=== PATIENT | male | born 1970 | race Caucasian/White ===

== ENCOUNTER 2023-07-14 09:51 | Emergency (ER) | payer OTHER ==
[~2023-07-14] VITALS: Ht 162.6 cm; Wt 98.9 kg
[2023-07-14 10:33] VITALS: BP 119/71; PULSE 97; RESP 20; TEMP 99; O2SAT 95
[2023-07-14 11:35] LABS: FLU A ANTIGEN negative (NEGATIVE); FLU B ANTIGEN NEGATIVE (NEGATIVE)
[2023-07-14] MEDS ORDERED: BENZ150C2 PO (12:41)
[2023-07-14] MEDS ORDERED: BENZ-300 PO (12:41)
[2023-07-14 13:00] VITALS: BP 120/69; PULSE 99; RESP 18; TEMP 98; O2SAT 97
== END 2023-07-14 13:00 | disposition home or self-care (01) ==
LOC: MED 09:51
DX: B34.9 Viral infection, unspecified (principal); Z20.822 Contact with and (suspected) exposure to COVID-19; E11.9 Type 2 diabetes mellitus without complications; I10 Essential (primary) hypertension; Z79.4 Long term (current) use of insulin; Z79.899 Other long term (current) drug therapy
CPT/HCPCS: 71045; 99284